=== PATIENT | male | born 1990 | race Caucasian/White ===

== ENCOUNTER 2021-01-08 14:28 | Emergency (ER) | payer OTHER | END 2021-01-08 17:34 | disposition home or self-care (01) | LOC: FER 14:28 | DX: M79.605 Pain in left leg (principal); M79.89 Other specified soft tissue disorders | CPT/HCPCS: 93971 ==

== ENCOUNTER 2021-02-05 10:15 | Emergency (ER) | payer OTHER ==
[2021-02-05] MEDS ORDERED: MEDROL 4MG DOSEP4 MG PO (12:16)
== END 2021-02-05 12:23 | disposition home or self-care (01) ==
LOC: FER 10:15
DX: J06.9 Acute upper respiratory infection, unspecified (principal); J98.01 Acute bronchospasm; Z20.822 Contact with and (suspected) exposure to COVID-19
CPT/HCPCS: 71045; 94640; 94664; U0002